=== PATIENT | female | born 1990 | race Caucasian/White ===

== ENCOUNTER 2023-06-04 11:10 | Emergency (ER) | payer OTHER ==
[2023-06-04] MEDS ORDERED: predniSONE 20 MG TABLET PO STA (12:05)
--- NOTE | 2023-06-04 12:09 | ED Physician Documentation ---
History of Present Illness - Stated complaint Stated Complaint: ARM RASH - Chief complaint Chief Complaint: Allergic Rx - History obtained from History obtained from: Patient - History of Present Illness Timing: How many days ago (4) Pain level max: 0 Pain level now: 0 - Additonal information Additional information: Patient is a 32-year-old female who presents to the emergency department with 4 days of rash, it is in the bilateral armpits as well as the bilateral panty lines. No fevers. No chills. She states that first she thought it was razor burn, but has continued to worsen and become very itchy. No drainage. No fevers. No chills. Nothing makes it better or worse. Patient states that she did use a new soap. Review of Systems Constitutional: denies: Fever, Chills Respiratory: denies: Cough PD PAST MEDICAL HISTORY - Past Medical History Past Medical History: No - Present Medications Home Medications: Ambulatory Orders Medication Instructions Recorded Confirmed predniSONE [Deltasone] 10 mg PO [id number] #[id number] tab 06/04/23 - Allergies Allergies/Adverse Reactions: Allergies Allergy/AdvReac Type Severity Reaction Status Date / Time Sulfa (Sulfonamide Allergy Hives Verified 06/04/23 11:34 Antibiotics) PD ED PE NORMAL - Vitals Vital signs reviewed: Yes - General General: Alert and oriented X 3, No acute distress - HEENT HEENT: PERRL, Moist mucous membranes - Neck Neck: Supple, no meningeal sign - Cardiac Cardiac: RRR, Strong equal pulses - Respiratory Respiratory: No respiratory distress, Clear bilaterally - Abdomen Abdomen: Soft, Non tender, Non distended - Derm Derm: Warm and dry - Extremities Extremities: Other (Macular papular exanthem to the bilateral axilla. No vesicles or pustules.) - Neuro Neuro: Alert and oriented X 3 - Psych Psych: Normal mood, Normal affect Results - Vitals Vitals: Vital Signs - 24 hr 06/04/23 06/04/23 11:30 12:19 Temperature 36.1 C L 36.3 C L Heart Rate 94 95 Respiratory 15 15 Rate Blood Pressure 126/71 125/70 O2 Saturation 100 99 Oxygen O2 Source Room air PD Medical Decision Making - ED course Complexity details: considered differential, d/w patient ED course: 32-year-old female with what appears to be a dermatitis likely from new soap that she was using. Patient will be placed on steroids for home. No signs of infection. We will have her follow-up with her PCP for further care. Patient counseled regarding signs and symptoms for which I believe and urgent re- evaluation would be necessary. Patient with good understanding of and agreement to plan and is comfortable going home at this time This document was made in part using voice recognition software. While efforts are made to proofread this document, sound alike and grammatical errors may occur. Departure - Departure Disposition: 01 Home, Self Care Clinical Impression: Dermatitis Condition: Good Instructions: ED Dermatitis Non Specific Rash Follow-Up: your,doctor in 1 week if not better [Other] Prescriptions: predniSONE [Deltasone] 10 mg PO [id number] #[id number] tab Comments: Your prescription was sent to [facility] in [place]. Please take the steroids as prescribed. This appears to be an allergic reaction. You can use Zyrtec or Claritin as needed for itching. Please return if you worsen. Forms: PCP List Discharge Date/Time: 06/04/23 12:19
[2023-06-04 12:26] VITALS: BP 125/70; O2SAT 99
== END 2023-06-04 12:19 | disposition home or self-care (01) ==
LOC: ED 11:10
DX: L30.9 Dermatitis, unspecified (principal)
CPT/HCPCS: 99282; 99283; J7512